=== PATIENT | male | born 1955 | race Caucasian/White ===

== ENCOUNTER 2017-06-10 17:57 | Emergency (ER) | payer MEDICAID ==
[~2017-06-10] VITALS: Ht 177.8 cm; Wt 83.0 kg
[~2017-06-10 17:57] MED LIST: AMLO5TAB4 PO; CEPH500C5 PO; HYDR-569 PO; NAPR-1154 PO; NAPR-996 PO
[2017-06-10] MEDS ORDERED: diphenhydrAMINE 50 mg/ml inj IM ONE (18:35)
[2017-06-10 18:39] VITALS: BP 163/94
== END 2017-06-10 18:47 | disposition home or self-care (01) ==
LOC: ER 17:59
DX: T42.6X5A Adverse effect of other antiepileptic and sedative-hypnotic drugs, initial encounter (principal); I10 Essential (primary) hypertension; J44.9 Chronic obstructive pulmonary disease, unspecified; E11.9 Type 2 diabetes mellitus without complications; G89.29 Other chronic pain; Z86.73 Personal history of transient ischemic attack (TIA), and cerebral infarction without residual deficits; Z87.442 Personal history of urinary calculi; Z98.890 Other specified postprocedural states; Z56.0 Unemployment, unspecified; Z79.899 Other long term (current) drug therapy; Y92.89 Other specified places as the place of occurrence of the external cause
CPT/HCPCS: 96372; 99283; J1200